=== PATIENT | male | born 1980 | race Caucasian/White ===

== ENCOUNTER 2019-06-25 11:12 | Outpatient (CLI) | payer OTHER | END 2019-06-25 11:17 | disposition home or self-care (01) | LOC: SONOGRAMA 11:12 | DX: E04.2 Nontoxic multinodular goiter (principal) ==

== ENCOUNTER 2023-04-08 10:13 | Outpatient (CLI) | payer OTHER | END 2023-04-08 10:30 | disposition home or self-care (01) | LOC: SONOGRAMA 10:13 | DX: R22.1 Localized swelling, mass and lump, neck (principal); M79.672 Pain in left foot ==